=== PATIENT | male | born 1975 | race Caucasian/White ===

== ENCOUNTER 2019-12-08 22:13 | Emergency (ER) | payer BC ==
[~2019-12-08] VITALS: Ht 175.3 cm; Wt 44.0 kg
[2019-12-08] MEDS ORDERED: CLINDAMYCIN 900MG IV 50 ML IV ONE (22:45)
[2019-12-09 00:44] VITALS: BP 147/92
[2019-12-09] MEDS ORDERED: TETANUS-DIPTH-ACEL PERTUSSIS 0.5ML SYRG IM ONE (01:00)
[2019-12-09] MEDS ORDERED: SODIUM CHLORIDE 0.9% 1,000 ML IV ONE (01:00)
== END 2019-12-09 02:11 | disposition home or self-care (01) ==
LOC: ER 22:17
DX: L03.114 Cellulitis of left upper limb (principal); Z88.0 Allergy status to penicillin; W55.01XA Bitten by cat, initial encounter; Y93.89 Activity, other specified; Y99.8 Other external cause status; Y92.89 Other specified places as the place of occurrence of the external cause
CPT/HCPCS: 73110; 90471; 90715; 96365; 99283; J3490

== ENCOUNTER 2022-11-02 16:43 | Emergency (ER) | payer BC ==
[~2022-11-02] VITALS: Ht 175.3 cm; Wt 107.0 kg
[2022-11-02 19:06] VITALS: BP 172/98
[2022-11-02] MEDS ORDERED: IBUPROFEN 800 MG TAB PO ONE ×2 (19:30→19:45)
== END 2022-11-02 19:55 | disposition home or self-care (01) ==
LOC: ER 16:43
DX: S01.81XA Laceration without foreign body of other part of head, initial encounter (principal); S01.531A Puncture wound without foreign body of lip, initial encounter; Z88.0 Allergy status to penicillin; V29.99XA Rider (driver) (passenger) of other motorcycle injured in unspecified traffic accident, initial encounter; Y93.89 Activity, other specified; Y92.410 Unspecified street and highway as the place of occurrence of the external cause; Y99.8 Other external cause status